=== PATIENT | female | born 1995 ===

== ENCOUNTER 2017-06-05 19:44 | Emergency (ER) | payer OTHER ==
[2017-06-05 19:59] VITALS: TEMP 97.7
[2017-06-05] MEDS ORDERED: Sodium Chloride 0.9% 1,000 ML IV ONE ×2 (20:03)
--- NOTE | 2017-06-05 20:03 | C.PDOC ---
History Of Present Illness 21 y/o female presents to ED for complaints of abdominal pain that began 2pm this afternoon. Patient states that the pain is epigastric and associated with vomiting. Denies diarrhea or any other complaints. Chief Complaint (Nursing): Abdominal Pain History Per: Patient History/Exam Limitations: no limitations Onset/Duration Of Symptoms: Hrs Current Symptoms Are (Timing): Still Present Location Of Pain/Discomfort: Epigastric Radiation Of Pain To:: None Quality Of Discomfort: "Pain" Associated Symptoms: Vomiting. denies: Fever, Chills, Diarrhea Exacerbating Factors: None Alleviating Factors: None Recent travel outside of the [place]: No Abnormal Vaginal Bleeding: No Past Medical History Reviewed: Historical Data, Nursing Documentation, Vital Signs Vital Signs: Last Vital Signs Temp 97.7 F 06/05/17 19:53 Pulse 88 06/05/17 22:27 Resp 19 06/05/17 22:27 BP 130/82 06/05/17 22:27 Pulse Ox 98 06/05/17 23:54 - Medical History PMH: No Chronic Diseases Surgical History: Cholecystectomy Family History: States: No Known Family Hx - Social History Hx Alcohol Use: Yes Hx Substance Use: Yes (weed) - Immunization History Hx Tetanus Toxoid Vaccination: No Hx Influenza Vaccination: No Hx Pneumococcal Vaccination: No Review Of Systems Constitutional: Negative for: Fever, Chills Cardiovascular: Negative for: Chest Pain Gastrointestinal: Positive for: Vomiting, Abdominal Pain (epigastric ). Negative for: Diarrhea, Constipation Neurological: Negative for: Weakness, Numbness Physical Exam - Physical Exam Appears: Non-toxic, No Acute Distress Skin: Normal Color, Warm, Dry Head: Atraumatic, Normacephalic Eye(s): bilateral: Normal Inspection Oral Mucosa: Moist Neck: Supple Chest: Symmetrical, No Tenderness Cardiovascular: Rhythm Regular Respiratory: Normal Breath Sounds, No Decreased Breath Sounds, No Rales, No Rhonchi, No Wheezing Gastrointestinal/Abdominal: Soft, Tenderness (epigastric), No Guarding, No Rebound Neurological/Psych: Oriented x3, Normal Speech, Normal Cognition ED Course And Treatment - Laboratory Results Result Diagrams: 06/05/17 20:16 06/05/17 20:16 O2 Sat by Pulse Oximetry: 98 (RA) Pulse Ox Interpretation: Normal Progress Note: Patient refused the antibiotic, noted to be doing self induced vomiting by putting her fingers on her throat, subsequent walked out of the ER. Medical Decision Making Medical Decision Making: Administered Pepcid, Zofran, IV fluids, and carafate tab. Ordered blood work and urinalysis. Disposition - Disposition Disposition: ELOPEMENT - ER ONLY Disposition Time: 23:40 Condition: STABLE Forms: [facility] (Greenlandic) - POA Present On Arrival: None - Clinical Impression Clinical Impression: Abdominal pain, UTI (urinary tract infection) - Scribe Statement The provider has reviewed the documentation as recorded by the Scottiblaurie Collins All medical record entries made by the Scottiblaurie were at my direction and personally dictated by me. I have reviewed the chart and agree that the record accurately reflects my personal performance of the history, physical exam, medical decision making, and the department course for this patient. I have also personally directed, reviewed, and agree with the discharge instructions and disposition.
[2017-06-05 20:19] LABS: BASO # 0.3 K/uL (0.0-0.2); BASO % 1.7 % (0.0-2.0); HEMOGLOBIN 14.9 g/dL (11.0-16.0); LYMPH # 1.2 K/uL (1.0-4.3); LYMPH % 6.5 % (20.0-40.0); MEAN CELL VOLUME 84.9 fL (81.0-99.0); MEAN CORPUSCULAR HEMOGLOBIN 29.7 pg (27.0-31.0); MEAN PLATELET VOLUME 8.6 fL (7.2-11.7); MONO % 5.7 % (0.0-10.0); NEUT # 15.2 K/uL (1.8-7.0); NEUT % 86.1 % (50.0-75.0); PLATELET COUNT 458 K/uL (130-400); RBC 5.01 Mil/uL (3.80-5.20); RED CELL DISTRIBUTION WIDTH 13.3 % (11.5-14.5); WHITE BLOOD COUNT 17.7 K/uL (4.8-10.8)
[2017-06-05] MEDS ORDERED: Sodium Chloride 0.9% 1,000 ML ONE ×2 (20:19→20:48)
[2017-06-05] MEDS ORDERED: Sucralfate 1 gm/10 ml Oral Susp UD ONE (20:19)
[2017-06-05 20:32] LABS: ALB/GLOB RATIO 1.3 (1.0-2.1); ALT/SGPT 22 U/L (9-52); AST/SGOT 27 U/L (14-36); BLOOD UREA NITROGEN 14 mg/dL (7-17); CALCIUM 9.9 mg/dl (8.6-10.4); GFR AFRICAN-AMERICAN > 60; GFR NON-AFRICAN AMERICAN > 60; LIPASE 117 U/L (23-300)
[2017-06-05 20:45] LABS: MONOCYTE 5 % (0-10); TOTAL CELLS COUNTED 100
[2017-06-05 20:46] LABS: LYMPHOCYTE 8 % (20-40); NEUTROPHIL 87 % (50-75); PLATELET ESTIMATE SLIGHTLY INCREASED (NORMAL)
[2017-06-05 20:59] VITALS: RESP 19
[2017-06-05 21:19] LABS: HCG,QUALITATIVE URINE NEGATIVE (NEGATIVE)
[2017-06-05 21:22] LABS: SQUAMOUS EPITHIAL 15 /hpf (0-5); URINE BACTERIA FEW (<OCC); URINE BILIRUBIN NEGATIVE (NEGATIVE); URINE BLOOD 1+ (NEGATIVE); URINE CLARITY Hazy (Clear); URINE COLOR Yellow (YELLOW); URINE GLUCOSE (UA) NORMAL (Normal); URINE LEUKOCYTE ESTERASE 1+ Leu/uL (Negative); URINE PROTEIN 2+ mg/dL (NEGATIVE); URINE UROBILINOGEN NORMAL mg/dL (0.2-1.0)
[2017-06-05] MEDS ORDERED: Iodixanol 320 MG/ML 100 ML BOTTLE IV ONE (21:54)
[2017-06-05 22:28] VITALS: BP 130/82; PULSE 88
--- NOTE | 2017-06-05 22:55 | CT ---
EXAM: CT Abdomen and Pelvis With Intravenous Contrast EXAM DATE/TIME: 06/05/2017 8:59 PM CLINICAL HISTORY: 21 years old, female; Pain; Abdominal pain; Epigastric; Additional info: Abd pain/ tenderness TECHNIQUE: Axial computed tomography images of the abdomen and pelvis with intravenous contrast. All CT scans at this facility use one or more dose reduction techniques, viz.: automated exposure control; ma/kV adjustment per patient size (including targeted exams where dose is matched to indication; i.e. head); or iterative reconstruction technique. Coronal and sagittal reformatted images were created and reviewed. CONTRAST: 100 mL of visipaque 320 administered intravenously. COMPARISON: No relevant prior studies available. FINDINGS: Cholecystectomy clips are present. The liver, spleen, kidneys and pancreas appear normal although there is patient motion artifact through the upper abdomen. The small bowel appears normal. Decompressed left colon. Moderate amount of stool in the sigmoid colon. The proximal appendix is identified on axial image 134 and coronal image 58. It is not well-seen distally however there are no secondary signs of appendicitis in the right lower quadrant. Bilateral ovarian follicles are noted. The uterus appears normal. IMPRESSION: No acute findings.
[2017-06-05] MEDS ORDERED: Belladonna-Phenobarbital PO STA (22:58)
[2017-06-05] MEDS ORDERED: Ciprofloxacin 400mg/200ml D5W 400 MG/200 ML BAG IVPB STA (22:59)
[2017-06-05] MEDS ORDERED: Belladonna-Phenobarbital ONE (23:02)
[2017-06-05] MEDS ORDERED: Ciprofloxacin 400mg/200ml D5W 400 MG/200 ML BAG IVPB ONE (23:12)
[2017-06-05 23:54] VITALS: O2SAT 98
== END 2017-06-05 23:40 | disposition left against medical advice (07) ==
LOC: C.ER 19:44
DX: N39.0 Urinary tract infection, site not specified (principal); R10.9 Unspecified abdominal pain
CPT/HCPCS: 74177; 80053; 81001; 83690; 84703; 85025; 87086; 96374; 96375; 96376; 99285; J1885; J2405; J2765; J7040; Q9967